=== PATIENT | female | born 1995 | race Two or more races ===

== ENCOUNTER 2020-03-28 14:06 | Emergency (ER) | payer MEDICAID ==
[~2020-03-28] VITALS: Ht 170.2 cm; Wt 90.0 kg
[2020-03-28 14:10] VITALS: BP 120/61
[2020-03-28] MEDS ORDERED: SODIUM CHLORIDE 0.9% 1,000 ML IV ONE (14:30)
[2020-03-28 14:59] LABS: CHLORIDE 106 mEq/L (98-107)
[2020-03-28 15:00] LABS: BASOPHILS % 0.9 % (0.0-2.0); HEMATOCRIT. 38.2 % (36.0-48.0); HEMOGLOBIN. 12.8 g/dL (12.0-16.0); LYMPHOCYTES % 27.9 % (20.0-50.0); MEAN CORPUSCULAR HEMOGLOBIN 30.1 pg (28.0-32.0); MEAN CORPUSCULAR VOLUME 89.7 fL (81.0-99.0); MEAN PLATELET VOLUME 6.8 fl (7.4-10.4); NEUTROPHILS % 62.2 % (40.0-76.0); PLATELET 363 x1000/uL (130-400); RED BLOOD CELL COUNT 4.26 mill/uL (4.2-5.4); RED CELL DISTRIBUTION WIDTH 12.4 % (11.6-14.6)
[2020-03-28 15:01] LABS: PROTHROMBIN TIME 10.3 sec (9.6-11.0)
[2020-03-28 15:04] LABS: HCG SCREEN NEGATIVE
== END 2020-03-28 15:43 | disposition home or self-care (01) ==
LOC: ER 14:22
DX: E86.0 Dehydration (principal); Z86.59 Personal history of other mental and behavioral disorders
CPT/HCPCS: 36415; 80053; 84703; 85025; 85610; 93005; 96360; 99284; J7030

== ENCOUNTER 2020-12-06 20:22 | Emergency (ER) | payer MEDICAID ==
[~2020-12-06] VITALS: Ht 170.2 cm; Wt 109.0 kg
[2020-12-06] MEDS ORDERED: KETOROLAC 60MG/2ML VIAL IM STA (20:55)
[2020-12-06] MEDS ORDERED: CYCLOBENZAPRINE 10MG TABLET PO ONE (21:00)
[2020-12-06 21:23] LABS: CLARITY URINE CLEAR (CLEAR); COLOR URINE YELLOW (YELLOW); KETONES URINE NEGATIVE (NEGATIVE); LEUKOCYTE ESTERASE URINE NEGATIVE (NEGATIVE); NITRITE URINE NEGATIVE (NEGATIVE); OCCULT BLOOD URINE NEGATIVE (NEGATIVE); PROTEIN URINE NEGATIVE (NEGATIVE); SPECIFIC GRAVITY URINE 1.021 (1.005-1.030)
[2020-12-06] MEDS ORDERED: IBUP-2029 MT (22:31)
[2020-12-06] MEDS ORDERED: CYCL10TA7 MT (22:32)
[2020-12-06 22:39] VITALS: BP 125/76
[2020-12-06] MEDS ORDERED: ACETAMINOPHEN WITH CODEINE 300/30MG TABLET PO ONE (22:45)
== END 2020-12-06 22:39 | disposition home or self-care (01) ==
LOC: ER 20:22
DX: M54.5 Low back pain (principal); Z88.0 Allergy status to penicillin; Z88.2 Allergy status to sulfonamides; Z88.5 Allergy status to narcotic agent
CPT/HCPCS: 72100; 81003; 81025; 96372; 99284; J1885

== ENCOUNTER 2021-01-18 19:06 | Emergency (ER) | payer MEDICAID ==
[~2021-01-18] VITALS: Ht 170.2 cm; Wt 107.0 kg
[~2021-01-18 19:06] MED LIST: CYCL10TA7 MT; IBUP-2029 MT
[2021-01-18] MEDS ORDERED: ACETAMINOPHEN 325MG TABLET PO STA (21:27)
[2021-01-18] MEDS ORDERED: METOCLOPRAMIDE HCL 10MG/2ML VIAL IV ONE (21:30)
[2021-01-18] MEDS ORDERED: DIPHENHYDRAMINE 50MG/ML VIAL IV ONE (21:30)
[2021-01-18] MEDS ORDERED: SODIUM CHLORIDE 0.9% 1,000 ML IV ONE (21:30)
[2021-01-19] MEDS ORDERED: DEXAMETHASONE 10 MG/ML VIAL IV ONE (01:00)
[2021-01-19 02:44] VITALS: BP 128/76
== END 2021-01-19 02:48 | disposition home or self-care (01) ==
LOC: ER 19:06
DX: R51.9 Headache, unspecified (principal); J45.909 Unspecified asthma, uncomplicated; F20.9 Schizophrenia, unspecified; Z88.0 Allergy status to penicillin; Z88.2 Allergy status to sulfonamides; Z88.5 Allergy status to narcotic agent
CPT/HCPCS: 81025; 96374; 96375; 99284; J1100; J1200; J2765; J7030

== ENCOUNTER 2021-05-06 11:03 | Emergency (ER) | payer MEDICAID ==
[~2021-05-06] VITALS: Ht 170.2 cm; Wt 91.0 kg
[2021-05-06] MEDS ORDERED: SODIUM CHLORIDE 0.9% 1,000 ML IV ONE (11:15)
[2021-05-06] MEDS ORDERED: KETOROLAC 15MG/ML VIAL IV ONE (11:30)
[2021-05-06] MEDS ORDERED: ACETAMINOPHEN 325MG TABLET PO ONE (11:30)
[2021-05-06 12:34] LABS: BASOPHILS % 0.6 % (0.0-2.0); HEMATOCRIT. 40.3 % (36.0-48.0); HEMOGLOBIN. 13.8 g/dL (12.0-16.0); LYMPHOCYTES % 34.4 % (20.0-50.0); MEAN CORPUSCULAR HEMOGLOBIN 29.7 pg (28.0-32.0); PLATELET 330 x1000/uL (130-400); RED BLOOD CELL COUNT 4.64 mill/uL (4.2-5.4); RED CELL DISTRIBUTION WIDTH 13.3 % (11.6-14.6)
[2021-05-06 12:36] LABS: CHLORIDE 108 mEq/L (98-107)
[2021-05-06 12:39] LABS: HCG SCREEN NEGATIVE
[2021-05-06 12:43] LABS: CLARITY URINE CLEAR (CLEAR); COLOR URINE YELLOW (YELLOW); KETONES URINE NEGATIVE (NEGATIVE); LEUKOCYTE ESTERASE URINE NEGATIVE (NEGATIVE); NITRITE URINE NEGATIVE (NEGATIVE); OCCULT BLOOD URINE NEGATIVE (NEGATIVE); PROTEIN URINE NEGATIVE (NEGATIVE); SPECIFIC GRAVITY URINE 1.015 (1.005-1.030); UROBILINOGEN URINE 0.2 E.U./dL (0.2-1.0)
[2021-05-06] MEDS ORDERED: IBUP-2029 MT (13:24)
[2021-05-06] MEDS ORDERED: DICY10CA88 MT (13:24)
[2021-05-06] MEDS ORDERED: DICYCLOMINE HCL 10MG CAPSULE PO ONE (13:30)
[2021-05-06 14:15] VITALS: BP 121/73
== END 2021-05-06 14:18 | disposition home or self-care (01) ==
LOC: ER 11:03
DX: R10.32 Left lower quadrant pain (principal); J45.909 Unspecified asthma, uncomplicated; G43.909 Migraine, unspecified, not intractable, without status migrainosus; F20.9 Schizophrenia, unspecified; F15.10 Other stimulant abuse, uncomplicated; Z88.0 Allergy status to penicillin
CPT/HCPCS: 36415; 76830; 76856; 80053; 81003; 81025; 83690; 84703; 85025; 96361; 96374; 99284; J1885; J7030

== ENCOUNTER 2021-08-28 15:26 | Emergency (ER) | payer MEDICAID, OTHER ==
[~2021-08-28] VITALS: Ht 170.2 cm; Wt 105.0 kg
[~2021-08-28 15:26] MED LIST changes: +CYCL10TA21 MT; -CYCL10TA7 MT; +DICY10CA88 MT
[2021-08-28] MEDS ORDERED: ACETAMINOPHEN 325MG TABLET PO ONE (17:15)
[2021-08-28] MEDS ORDERED: TETANUS, DIPHTHERIA, PERTUSSIS VAC/PF 0.5ML (>10YR OLD) IM ONE (18:15)
[2021-08-28] MEDS ORDERED: IBUP-2029 MT (18:15)
[2021-08-28] MEDS ORDERED: BACL-141 MT (18:29)
[2021-08-28] MEDS ORDERED: HYDROCODONE/ACETAMINOPHEN 5/325MG TABLET PO ONE (18:30)
[2021-08-28 19:45] VITALS: BP 110/65
== END 2021-08-28 19:36 | disposition home or self-care (01) ==
LOC: ER 15:40
DX: S93.492A Sprain of other ligament of left ankle, initial encounter (principal); S80.211A Abrasion, right knee, initial encounter; I10 Essential (primary) hypertension; F17.210 Nicotine dependence, cigarettes, uncomplicated; Z71.6 Tobacco abuse counseling; W18.49XA Other slipping, tripping and stumbling without falling, initial encounter; Y93.01 Activity, walking, marching and hiking; Y92.017 Garden or yard in single-family (private) house as the place of occurrence of the external cause
CPT/HCPCS: 73560; 73610; 90471; 90715; 99284; 99406

== ENCOUNTER 2021-12-02 12:29 | Emergency (ER) | payer MEDICAID, OTHER ==
[~2021-12-02] VITALS: Ht 167.6 cm; Wt 120.0 kg
[~2021-12-02 12:29] MED LIST changes: +BACL-141 MT
[2021-12-02] MEDS ORDERED: IBUPROFEN 600MG TABLET PO ONE (14:45)
[2021-12-02 15:06] LABS: CLARITY URINE CLEAR (CLEAR); COLOR URINE YELLOW (YELLOW); KETONES URINE TRACE (NEGATIVE); LEUKOCYTE ESTERASE URINE NEGATIVE (NEGATIVE); NITRITE URINE NEGATIVE (NEGATIVE); OCCULT BLOOD URINE NEGATIVE (NEGATIVE); PH URINE 6.5 (4.5-8.0); PROTEIN URINE NEGATIVE (NEGATIVE); SPECIFIC GRAVITY URINE 1.024 (1.005-1.030)
[2021-12-02] MEDS ORDERED: KETOROLAC 60MG/2ML VIAL IM ONE (15:30)
[2021-12-02] MEDS ORDERED: CYCL10TA21 MT (15:32)
[2021-12-02] MEDS ORDERED: IBUP-2029 MT (15:32)
[2021-12-02 15:54] VITALS: BP 132/85
== END 2021-12-02 16:03 | disposition home or self-care (01) ==
LOC: ER 12:29
DX: M54.16 Radiculopathy, lumbar region (principal); Z88.0 Allergy status to penicillin; Z88.6 Allergy status to analgesic agent; Z91.041 Radiographic dye allergy status; Z91.040 Latex allergy status
CPT/HCPCS: 81003; 81025; 96372; 99283; J1885

== ENCOUNTER 2022-06-27 21:24 | Emergency (ER) | payer MEDICAID ==
[~2022-06-27] VITALS: Ht 170.2 cm; Wt 116.0 kg
[2022-06-28] MEDS ORDERED: KETOROLAC 30MG/ML VIAL IM ONE (02:15)
[2022-06-28] MEDS ORDERED: HYDR-4001 MT (02:22)
[2022-06-28 02:46] VITALS: BP 114/77
== END 2022-06-28 02:47 | disposition home or self-care (01) ==
LOC: ER 21:42
DX: S53.401A Unspecified sprain of right elbow, initial encounter (principal); S43.401A Unspecified sprain of right shoulder joint, initial encounter; J45.909 Unspecified asthma, uncomplicated; E78.00 Pure hypercholesterolemia, unspecified; G43.909 Migraine, unspecified, not intractable, without status migrainosus; F20.9 Schizophrenia, unspecified; F19.90 Other psychoactive substance use, unspecified, uncomplicated; Z88.0 Allergy status to penicillin; Z88.2 Allergy status to sulfonamides; Z91.040 Latex allergy status; Z88.8 Allergy status to other drugs, medicaments and biological substances; W18.2XXA Fall in (into) shower or empty bathtub, initial encounter; Y93.89 Activity, other specified; Y92.89 Other specified places as the place of occurrence of the external cause; Y99.8 Other external cause status
CPT/HCPCS: 73030; 73070; 96372; 99284; J1885